=== PATIENT | male | born 1980 | race Caucasian/White ===

== ENCOUNTER 2019-09-13 14:20 | Emergency (ER) | payer OTHER ==
[~2019-09-13] VITALS: Ht 170.2 cm; Wt 93.4 kg
[2019-09-13] MEDS ORDERED: ANDROGEL2.5 G1 (14:33)
[2019-09-13] MEDS ORDERED: CIALIS5 MG PO (14:33)
[2019-09-13 14:40] LABS: INFLUENZA A ANTIGEN Positive (Negative); INFLUENZA B ANTIGEN Negative (Negative)
[2019-09-13] MEDS ORDERED: TAMIFLU75 MG PO (14:49)
[2019-09-13 15:00] VITALS: BP 138/72
== END 2019-09-13 15:01 | disposition home or self-care (01) ==
LOC: M.ERS 14:20
PROVIDERS: Family Medicine
DX: J09.X2 Influenza due to identified novel influenza A virus with other respiratory manifestations (principal); K50.90 Crohn's disease, unspecified, without complications; M19.90 Unspecified osteoarthritis, unspecified site; Z90.49 Acquired absence of other specified parts of digestive tract; Z88.2 Allergy status to sulfonamides

== ENCOUNTER 2019-10-25 15:53 | Emergency (ER) | payer OTHER ==
[~2019-10-25] VITALS: Ht 170.2 cm; Wt 94.8 kg
[~2019-10-25 15:53] MED LIST: ANDROGEL2.5 G1; CIALIS5 MG PO; TAMIFLU75 MG PO
[2019-10-25] MEDS ORDERED: KEFLEX500 M1 PO (17:40)
[2019-10-25 17:54] VITALS: BP 155/94
== END 2019-10-25 17:54 | disposition home or self-care (01) ==
LOC: M.ERS 15:53
DX: S61.213A Laceration without foreign body of left middle finger without damage to nail, initial encounter (principal); F12.10 Cannabis abuse, uncomplicated; M19.90 Unspecified osteoarthritis, unspecified site; Z90.89 Acquired absence of other organs; Z88.2 Allergy status to sulfonamides; W26.8XXA Contact with other sharp object(s), not elsewhere classified, initial encounter; Y93.89 Activity, other specified; Y92.89 Other specified places as the place of occurrence of the external cause; Y99.8 Other external cause status